=== PATIENT | male | born 1950 | race Caucasian/White ===

== ENCOUNTER → 2019-10-06 | Outpatient (CLI) | payer MEDICARE, BC ==
[~2019-10-06] MED LIST: ACETAMINOPHEN325 M1 PO; ACYCLOVIR 400400 MG PO; ASPIRIN EC81 M1 PO; ATORVASTATIN CA40 MG PO; CENTRUM SILVER1 EAC4 PO; CO Q-10100 MG PO; ECHINACEA400 MG PO; EFFIENT10 MG PO; ESTER-C 1,0001 EACH PO; FISH OIL 1,0001 EAC5 PO; GARLIC OIL1 EAC1 PO; GLUCOSAMINE &1 EACH PO; LISINOPRIL10 MG PO; MULTIVITAMINS PO; OLIVE LEAF EXT250 MG PO; OMEGA 3-6-9 CO1 EACH PO; PRADAXA150 MG PO; PROBIOTIC1 EAC1 PO; TOPROL XL25 MG PO; TURMERIC500 MG PO; VITCB500GO PO; ZANTAC 150MG T150 MG PO; ZINC CHELATE15 MG; ZYRTEC10 M5 PO; [UNRECOGNIZED DRUG - OTHER]; [UNRECOGNIZED DRUG - REMARK]
--- NOTE | 2019-10-06 13:40 | CARDNUC ---
[place] [address] CARDIAC NUCLEAR IMAGING REPORT Name: SHAQUILLE FLOR Room: [facility]#: [id number] Admission: 10/06/19 Attend Phys: Chelsy Hull Discharge: Date of : 52 Date of Service: 10/06/19 1339 Report #: [id number] THIS REPORT FOR: cc: Vince Kim MD, David L. MD Park, Jin S. MD ~ APPROVED REPORT Study performed: 10/06/2019 08:00:00 Indication: Palpitations , pat Patient Location: Out-Patient Stress Tech: Carol Ann Gonsalves Stress Nurse: Margoth Fleming RN Ht: 5 ft 10 in Wt: 184 lbs BSA: 2.02 m2 BMI: 26.39 Medical History Medical History: CAD s/p stent, Carotid artery disease, Atrial Fibrillation, Former Smoker, HTN, Hyperlipidemia Medications: asa-81, plavix, lisinopril Allergies: No known drug allergies Cardiac Risk Factors: Age, HTN, Hyperlipidemia, Tobacco History (Former) Previous Cardiac Procedures: PCI Exercise History: Physically active Resting Data Rest SPECT myocardial perfusion imaging was performed in supine position 30 minutes following the intravenous injection of 9.8 mCi of Tc-99m Sestamibi. Time of rest injection: 08:15 The images were gated to evaluate regional wall motion and calculate left ventricular ejection fraction. Administration Route: IV Administration Site: Right AC Pharmacologic Stress Pharmacologic stress test was performed by injecting Regadenoson 0.4 mg IV push over 10-15 seconds immediately followed by the intravenous injection of 30.9 mCi of Tc-99m Sestamibi. Time of stress injection: 09:55 Administration Route: [place] [address] CARDIAC NUCLEAR IMAGING REPORT Name: SHAQUILLE FLOR Room: [facility]#: [id number] Admission: 10/06/19 Attend Phys: Chelsy Hull Discharge: Date of : 52 Date of Service: 10/06/19 1339 Report #: [id number] Administration Site: Right AC Heart Rate at time of stress injection: 81 bpm. Gated Stress SPECT was performed 45 minutes after stress injection. The images were gated to evaluate regional wall motion and calculate left ventricular ejection fraction. Stress Test Details Stress Test: Pharmacologic stress testing performed using 0.4 mg of regadenoson per 5 mL given IV over 10 seconds. Reason for pharmacologic stress test: carotid stenosos, hx a fib. HR Max Heart Rate (APMHR): 152 bpm Resting HR: 50 bpm Target HR (85% APMHR): 129 bpm Max HR Achieved: 81 bpm % of APMHR: 53 Recovery HR: 71 bpm BP Resting BP: 147/75 mmHg Max BP: 150/72 mmHg Recovery BP: 149/79 mmHg ECG Resting ECG: Sinus Rhythm Stress ECG: Sinus Rhythm ST Change: Non-ischemic Clinical Reason for Termination: Completed protocol Exercise duration: 0 min sec Exercise capacity: 1 METs Study Quality Study: Good Study Data Post stress, the left ventricular ejection was 56%.. Perfusion Normal left ventricular perfusion. Normal perfusion on both the stress and rest images. Wall Motion Normal left [place] [address] CARDIAC NUCLEAR IMAGING REPORT Name: SHAQUILLE FLOR Room: [facility]#: [id number] Admission: 10/06/19 Attend Phys: Chelsy Hull Discharge: Date of : 52 Date of Service: 10/06/19 133 Report #: [id number] Nuclear Conclusion ECG Findings: negative for ischemia Clinical Findings: non-diagnostic Nuclear Findings: negative for ischemia Exercise Capacity: not assessed Left Ventricular Function: normal Risk Study: low This study is of low probability for inducible ischemia or prior infarct. Normal global and segmental LV systolic function. <ELECTRONICALLY SIGNED> By: Dylan Keller MD 10/06/19 1339 [id number] Dylan Keller MD /INF
== END ==
LOC: M.NUC 07:56
PROVIDERS: ATTEND Internal Medicine
DX: I25.10 Atherosclerotic heart disease of native coronary artery without angina pectoris (principal); I48.91 Unspecified atrial fibrillation; I10 Essential (primary) hypertension; E78.5 Hyperlipidemia, unspecified; Z95.5 Presence of coronary angioplasty implant and graft; Z87.891 Personal history of nicotine dependence

== ENCOUNTER → 2019-11-02 | Outpatient (CLI) | payer MEDICARE, BC | LOC: M.ULTRA 10:51 | PROVIDERS: ATTEND Internal Medicine | DX: N43.3 Hydrocele, unspecified (principal); I86.1 Scrotal varices; M17.0 Bilateral primary osteoarthritis of knee; N50.89 Other specified disorders of the male genital organs ==

== ENCOUNTER → 2019-11-13 | Outpatient (CLI) | payer MEDICARE, BC | LOC: M.ULTRA 12:59 | PROVIDERS: ATTEND Internal Medicine | DX: I70.213 Atherosclerosis of native arteries of extremities with intermittent claudication, bilateral legs (principal); K21.9 Gastro-esophageal reflux disease without esophagitis; I48.0 Paroxysmal atrial fibrillation; I10 Essential (primary) hypertension; H92.03 Otalgia, bilateral; I70.90 Unspecified atherosclerosis ==